=== PATIENT | female | born 1995 | race Caucasian/White ===

== ENCOUNTER 2023-05-06 03:14 | Emergency (ER) | payer SELFPAY ==
[~2023-05-06] VITALS: Ht 154.9 cm; Wt 62.0 kg
[2023-05-06 03:19] VITALS: O2SAT 100
[2023-05-06] MEDS ORDERED: CEPH500C2 MT (04:21)
[2023-05-06] MEDS ORDERED: ACET-2708 MT (04:21)
[2023-05-06 04:30] VITALS: BP 99/54; PULSE 77; RESP 18; TEMP 98
== END 2023-05-06 04:32 | disposition home or self-care (01) ==
LOC: ER 03:28
DX: L03.011 Cellulitis of right finger (principal); Z98.890 Other specified postprocedural states
CPT/HCPCS: 10060; 99283; Z7610